=== PATIENT | male | born 1965 | race Caucasian/White ===

== ENCOUNTER 2019-10-11 18:01 | Emergency (ER) | payer BC ==
[~2019-10-11] VITALS: Ht 177.8 cm; Wt 118.2 kg
[2019-10-11 18:03] VITALS: BP 129/78; Ht 177.8 cm; Wt 118.2 kg
[2019-10-11] MEDS ORDERED: MOBIC7.5 MG PO (18:06)
[2019-10-11] MEDS ORDERED: ZOCOR20 MG PO (18:06)
[2019-10-11] MEDS ORDERED: BISOPROLOL PO (18:06)
[2019-10-11] MEDS ORDERED: STELARA IM (18:07)
[2019-10-11 18:47] LABS: BASOPHILS 0.7 % (0-2); EOSINOPHILS 3.6 % (0-7); HEMATOCRIT 43.1 % (42.0-54.0); HEMOGLOBIN 14.7 g/dL (13.5-17.5); IMMATURE GRANULOCYTES 0.9 % (0-5); LYMPHOCYTES 22.8 % (15-50); MCH 31.9 pg (26.0-34.0); MCHC 34.1 g/dL (31.0-37.0); MCV 93.5 fL (80.0-100.0); MONOCYTES 8.7 % (2-11); NEUTROPHILS 63.3 % (40-80); PLATELET COUNT 196 10x3/uL (130-400); RBC 4.61 10x6/uL (4.20-6.10); WBC 5.8 10x3/uL (4.8-10.8)
[2019-10-11 19:01] LABS: ANION GAP 11.9 mmol/L (8-16); CALCIUM 8.8 mg/dL (8.5-10.1); CARBON DIOXIDE 26.1 mmol/L (21.0-32.0); CREATININE - SERUM 1.4 mg/dL (0.6-1.3)
[2019-10-11 19:07] LABS: ALBUMIN 4.2 g/dL (3.4-5.0); BILIRUBIN - TOTAL 0.45 mg/dL (0.2-1.3); PROTEIN - SERUM 7.9 g/dL (6.4-8.2)
== END 2019-10-11 19:51 | disposition home or self-care (01) ==
LOC: D.ER 18:01
PROVIDERS: Family Medicine
DX: R51 Headache (principal); J02.9 Acute pharyngitis, unspecified; R05 Cough; R68.89 Other general symptoms and signs; Z20.828 Contact with and (suspected) exposure to other viral communicable diseases; I10 Essential (primary) hypertension